=== PATIENT | female | born 1985 | race African-American/Black ===

== ENCOUNTER 2019-07-27 17:36 | Emergency (ER) | payer SELFPAY ==
[~2019-07-27] VITALS: Ht 170.2 cm; Wt 75.3 kg
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
[2019-07-27] MEDS ORDERED: TRAMADOL HCL 50 MG TABLET ONE (18:11)
--- NOTE | 2019-07-27 18:14 | NUR ---
tech at bedside for xray
[2019-07-27] MEDS ORDERED: TRAMADOL HCL 50 MG TABLET PO ONE (18:30)
[2019-07-27 19:26] VITALS: BP 117/81
--- NOTE | 2019-07-27 19:26 | NUR ---
Patient discharged to home in stable condition. Written and verbal after care instructions given. Patient verbalizes understanding of instruction.
== END 2019-07-27 19:27 | disposition home or self-care (01) ==
LOC: ER 17:39
DX: O9A.212 Injury, poisoning and certain other consequences of external causes complicating pregnancy, second trimester (principal); S82.832A Other fracture of upper and lower end of left fibula, initial encounter for closed fracture; S43.102A Unspecified dislocation of left acromioclavicular joint, initial encounter; S90.02XA Contusion of left ankle, initial encounter; Z3A.20 20 weeks gestation of pregnancy; Z88.0 Allergy status to penicillin; W22.8XXA Striking against or struck by other objects, initial encounter; Y93.89 Activity, other specified; Y92.89 Other specified places as the place of occurrence of the external cause; Y99.8 Other external cause status
CPT/HCPCS: 73030-TC; 73610-TC

== ENCOUNTER 2020-05-04 11:23 | Emergency (ER) | payer MEDICAID ==
[~2020-05-04] VITALS: Ht 170.2 cm; Wt 73.5 kg
[2020-05-04 12:20] VITALS: BP 124/94
[2020-05-04] MEDS ORDERED: KETOROLAC TROMETHAMINE INJ 30 MG/ML VIAL IM ONE (12:30)
[2020-05-04] MEDS ORDERED: KETOROLAC TROMETHAMINE 15 MG/ML VIAL ONE (13:10)
== END 2020-05-04 13:43 | disposition home or self-care (01) ==
LOC: ER 11:41
DX: S66.811A Strain of other specified muscles, fascia and tendons at wrist and hand level, right hand, initial encounter (principal); Z88.0 Allergy status to penicillin; X50.1XXA Overexertion from prolonged static or awkward postures, initial encounter; Y93.89 Activity, other specified; Y92.89 Other specified places as the place of occurrence of the external cause; Y99.8 Other external cause status
CPT/HCPCS: 29125; 73110; 96372; 99283; J1885

== ENCOUNTER 2020-12-06 18:18 | Emergency (ER) | payer MEDICAID ==
[~2020-12-06] VITALS: Ht 170.2 cm; Wt 81.2 kg
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
[2020-12-06] MEDS ORDERED: GUAIFENESIN LA 600 MG TABLET.SA PO ONE ×2 (19:30→20:26)
[2020-12-06] MEDS ORDERED: GUAI600T53 PO (20:28)
[2020-12-06] MEDS ORDERED: BENZ-13 PO (20:28)
--- NOTE | 2020-12-06 20:41 | NUR ---
Patient discharged to home in stable condition. Written and verbal after care instructions given. Patient verbalizes understanding of instruction. pT ambulatory with a steady gait
[2020-12-06 20:46] VITALS: BP 119/80
== END 2020-12-06 20:41 | disposition home or self-care (01) ==
LOC: ER 18:20
DX: J06.9 Acute upper respiratory infection, unspecified (principal); R05 Cough; Z20.822 Contact with and (suspected) exposure to COVID-19; Z88.0 Allergy status to penicillin
CPT/HCPCS: 71045; 87426; 99284; C9803

== ENCOUNTER 2021-06-27 09:05 | Emergency (ER) | payer MEDICAID ==
[~2021-06-27] VITALS: Ht 170.2 cm; Wt 88.0 kg
[~2021-06-27 09:05] MED LIST: BENZ-13 PO; GUAI600T53 PO
[2021-06-27 09:12] VITALS: BP 135/89
--- NOTE | 2021-06-27 09:12 | NUR ---
BIBS C/O GENERALIZED BODY ITCHING/RASH THAT STARTED AT 2AM. VITALS ARE WITHIN NORMAL LIMITS. BREATHING EVEN AND UNLABORED. PROVIDED WITH WARM BLANKET FOR COMFORT. AWAITING MD ROWLAND.
--- NOTE | 2021-06-27 09:31 | NUR ---
SEEN AND EXAMINED BY DR GONZALEZ
[2021-06-27] MEDS ORDERED: predniSONE 20 MG TABLET ONE (09:42)
[2021-06-27] MEDS ORDERED: diphenhydrAMINE HCL 25 MG CAPSULE ONE (09:43)
[2021-06-27] MEDS ORDERED: FAMOTIDINE (20 MG) 20 MG TABLET ONE (09:43)
[2021-06-27] MEDS ORDERED: predniSONE 50 MG TABLET PO ONE (10:00)
[2021-06-27] MEDS ORDERED: diphenhydrAMINE HCL 25 MG CAPSULE PO ONE (10:00)
[2021-06-27] MEDS ORDERED: FAMOTIDINE (20 MG) 20 MG TABLET PO ONE (10:00)
[2021-06-27 11:13] LABS: CREATININE 0.7 mg/dL (0.6-1.3); POTASSIUM 4.3 mmol/L (3.5-5.1)
[2021-06-27 11:18] LABS: ALBUMIN 3.7 g/dL (3.4-5.0); BILIRUBIN,DIRECT 0.1 mg/dL (0.0-0.2); BILIRUBIN,TOTAL 0.6 mg/dL (0.2-1.0); TOTAL PROTEIN, SERUM 7.6 g/dL (6.4-8.2)
[2021-06-27] MEDS ORDERED: PRED20TA PO (11:27)
[2021-06-27] MEDS ORDERED: DIPH25CA83 PO (11:27)
[2021-06-27 11:39] LABS: BASOPHILS % (AUTO) 0.4 % (0.0-2.0); EOSINOPHILS % (AUTO) 1.6 % (0.0-6.0); HEMATOCRIT 36 % (33-45); HEMOGLOBIN 12.3 g/dL (11.5-14.8); LYMPHOCYTES # (AUTO) 1.2 K/uL (0.8-4.8); LYMPHOCYTES % (AUTO) 15.4 % (20.0-44.0); MEAN CORPUSCULAR HGB CONC 35 g/dl (31.0-36.0); MEAN CORPUSCULAR VOLUME 94 fL (82-100); MONOCYTES # (AUTO) 0.4 K/uL (0.1-1.30); MONOCYTES % (AUTO) 5.6 % (2.0-12.0); NEUTROPHILS # (AUTO) 6.2 K/uL (1.8-8.9); PLATELET COUNT (AUTO) 381 K/uL (150-450); RED BLOOD CELL COUNT(AUTO) 3.76 MIL/uL (4.0-5.2)
--- NOTE | 2021-06-27 11:42 | NUR ---
Patient discharged to home in stable condition. Written and verbal after care instructions given. Patient verbalizes understanding of instruction.
== END 2021-06-27 11:46 | disposition home or self-care (01) ==
LOC: ER 09:11
DX: T78.40XA Allergy, unspecified, initial encounter (principal); Z88.0 Allergy status to penicillin; Z79.899 Other long term (current) drug therapy; X58.XXXA Exposure to other specified factors, initial encounter
CPT/HCPCS: 36415; 80048; 80076; 82247; 85025; 99284; J7512; Q0163

== ENCOUNTER 2022-03-03 16:58 | Emergency (ER) | payer MEDICAID ==
[~2022-03-03] VITALS: Ht 170.2 cm; Wt 84.8 kg
[~2022-03-03 16:58] MED LIST changes: +DIPH25CA83 PO; +PRED20TA PO
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
[2022-03-03] MEDS ORDERED: ONDANSETRON HCL/PF 4 MG/2 ML VIAL ONE (17:20)
[2022-03-03] MEDS ORDERED: HYDROMORPHONE 1 MG/1 ML DISP.SYRIN ONE (17:20)
--- NOTE | 2022-03-03 17:20 | NUR ---
SEEM by DR. EASTON
[2022-03-03] MEDS ORDERED: ONDANSETRON HCL/PF 4 MG/2 ML VIAL IVP ONE (17:30)
[2022-03-03] MEDS ORDERED: HYDROMORPHONE INJ 2 MG/ML DISP.SYRIN IV ONE ×2 (17:30→19:30)
--- NOTE | 2022-03-03 17:45 | NUR ---
xray done at bed side
--- NOTE | 2022-03-03 18:30 | NUR ---
VITAL SIGNS UPDATED.
[2022-03-03] MEDS ORDERED: DOCU-141 PO (19:08)
[2022-03-03] MEDS ORDERED: HYDR-4209 PO (19:08)
--- NOTE | 2022-03-03 19:28 | NUR ---
HAND OFF MARCELO ROTHMAN
--- NOTE | 2022-03-03 19:58 | NUR ---
KNEE IMMOBILIZER APPLIED TO LEFT KNEE
[2022-03-03 20:07] VITALS: BP 121/84
--- NOTE | 2022-03-03 20:07 | NUR ---
Patient discharged to home in stable condition with father. RX Written and verbal after care instructions given. Patient verbalizes understanding of instruction. Pt d/c via W/C
[2022-03-03] MEDS ORDERED: OXYC-133 PO (21:28)
--- NOTE | 2022-03-03 21:35 | NUR ---
callie's family came back to the ER requesting prescribed medications to be sent to a 24-hour pharmacy.
== END 2022-03-03 21:36 | disposition home or self-care (01) ==
LOC: ER 17:02
DX: S82.092A Other fracture of left patella, initial encounter for closed fracture (principal); Z79.899 Other long term (current) drug therapy; W17.89XA Other fall from one level to another, initial encounter; Y93.89 Activity, other specified; Y92.89 Other specified places as the place of occurrence of the external cause; Y99.8 Other external cause status
CPT/HCPCS: 99284; 96374; 29505; 96375; 96376; 73564; J2405; J1170

== ENCOUNTER 2022-07-26 19:57 | Emergency (ER) | payer MEDICAID ==
[~2022-07-26] VITALS: Ht 170.2 cm; Wt 83.0 kg
[~2022-07-26 19:57] MED LIST changes: +DOCU-141 PO; +HYDR-4209 PO; +OXYC-133 PO
--- NOTE | 2022-07-26 22:45 | NUR ---
BIBFAMILY. DIZZYNESS X 2 DAYS. ROOM SPINNING. PT A/OX4. TOLERATING R/A WELL WITH NO RESP DISTRESS. SAFETY MEASURES IN PLACE.
[2022-07-26] MEDS ORDERED: MECLIZINE HCL 12.5 MG TABLET PO ONE (23:00)
[2022-07-26] MEDS ORDERED: IV NS 0.9% 1,000 ML BAG IV ONE (23:00)
[2022-07-26] MEDS ORDERED: ONDANSETRON HCL/PF 4 MG/2 ML VIAL IVP ONE (23:00)
[2022-07-26] MEDS ORDERED: ONDANSETRON HCL/PF 4 MG/2 ML VIAL ONE (23:01)
[2022-07-26] MEDS ORDERED: MECLIZINE HCL 25 MG TABLET ONE (23:02)
--- NOTE | 2022-07-26 23:18 | NUR ---
RFA #20G S/L BLOOD COLLECTED AND SENT TO LAB
--- NOTE | 2022-07-26 23:27 | NUR ---
URINE COLLECTED AND SENT TO LAB
--- NOTE | 2022-07-26 23:51 | NUR ---
PT SIGNED WAIVER FORM; CLINICAL BIOCHEMIST AWARE
[2022-07-26 23:52] LABS: BASOPHILS # (AUTO) 0.1 K/uL (0.0-0.2); BASOPHILS % (AUTO) 0.5 % (0.0-2.0); EOSINOPHILS % (AUTO) 1.6 % (0.0-6.0); HEMATOCRIT 38 % (33-45); HEMOGLOBIN 12.5 g/dL (11.5-14.8); LYMPHOCYTES # (AUTO) 1.8 K/uL (0.8-4.8); LYMPHOCYTES % (AUTO) 15.3 % (20.0-44.0); MEAN CORPUSCULAR HGB CONC 33 g/dl (31.0-36.0); MEAN CORPUSCULAR VOLUME 95 fL (82-100); MONOCYTES # (AUTO) 0.6 K/uL (0.1-1.30); MONOCYTES % (AUTO) 5.1 % (2.0-12.0); NEUTROPHILS # (AUTO) 9.2 K/uL (1.8-8.9); NEUTROPHILS % (AUTO) 77.5 % (43.0-81.0); PLATELET COUNT (AUTO) 389 K/uL (150-450); WHITE BLOOD COUNT (AUTO) 11.8 K/uL (4.3-11.0)
[2022-07-27 00:06] LABS: ALANINE AMINOTRANSFERASE 32 U/L (12-78); ALBUMIN 3.9 g/dL (3.4-5.0); ALKALINE PHOSPHATASE 71 U/L (46-116); ASPARTATE AMINOTRANSFERASE 26 U/L (15-37); BILIRUBIN,DIRECT 0.2 mg/dL (0.0-0.2); BILIRUBIN,TOTAL 0.5 mg/dL (0.2-1.0); CALCIUM, SERUM 8.8 mg/dL (8.5-10.1); CARBON DIOXIDE 24 mmol/L (21-32); CHLORIDE 102 mmol/L (98-107); GLUCOSE 87 mg/dL (74-106); POTASSIUM 3.8 mmol/L (3.5-5.1); SODIUM SERUM 137 mmol/L (136-145); TOTAL PROTEIN, SERUM 8.3 g/dL (6.4-8.2); UREA NITROGEN, BLOOD 11 mg/dL (7-18)
--- NOTE | 2022-07-27 00:13 | NUR ---
PT TAKEN TO CT VIA JOYCE
[2022-07-27 00:28] LABS: BILIRUBIN,URINE NEGATIVE (NEGATIVE); COLOR,URINE YELLOW (YELLOW); LEUKOCYTE ESTERASE ,URINE 2+ (NEGATIVE); NITRITE, URINE NEGATIVE (NEGATIVE); PH,URINE 5.5 (5.0-8.0); PROTEIN,URINE NEGATIVE (NEGATIVE); UGLUCOSE NEGATIVE (NEGATIVE); UROBILINOGEN,URINE 0.2 EU/dL (0.2)
[2022-07-27 00:55] LABS: BACTERIA,URINE Moderate /HPF (None Seen); SQUAMOUS EPITHELIAL CELL,UR Many /HPF (None Seen)
--- NOTE | 2022-07-27 01:25 | NUR ---
ASSESSMENT NURSE PRACTITIONER AT PT'S BEDSIDE
[2022-07-27] MEDS ORDERED: NITROFURANTOIN/MONOHYDRATE MACROCRYSTALS 100 MG CAPSULE ONE (01:26)
[2022-07-27] MEDS ORDERED: NITROFURANTOIN/MONOHYDRATE MACROCRYSTALS 100 MG CAPSULE PO ONE (01:30)
--- NOTE | 2022-07-27 01:45 | NUR ---
Patient does not wish to proceed with medical care recommended by Ivania Colvin. Patient given information related to possible complications, up to and including , which could occur as a result of leaving the hospital at this time. Patient verbalizes understanding of risks involved due to leaving against medical advice. Patient has signed AMA form.
[2022-07-27 01:47] VITALS: BP 124/85
--- NOTE | 2022-07-27 01:47 | NUR ---
IV removed. Catheter intact and site benign. Pressure and 4x4 applied to site. No bleeding noted.
== END 2022-07-27 01:48 | disposition left against medical advice (07) ==
LOC: ER 19:58
DX: R42 Dizziness and giddiness (principal); N39.0 Urinary tract infection, site not specified; F17.200 Nicotine dependence, unspecified, uncomplicated; Z88.0 Allergy status to penicillin; Z79.899 Other long term (current) drug therapy
CPT/HCPCS: 99285; 96374; 70450; 71045; 96361; 93005; 85025; 80048; 87086; 80076; 84703; 81001; 36415 ×2; 84484 ×2; 85730; 82962; J8597; J2405; J7030

== ENCOUNTER 2023-05-16 18:07 | Emergency (ER) | payer MEDICAID ==
[~2023-05-16] VITALS: Ht 170.2 cm; Wt 80.7 kg
[~2023-05-16 18:07] MED LIST changes: +BACI30OI9 TP; +CLIN300C12 PO
[2023-05-16] MEDS ORDERED: ALBU18HF2 INH (22:06)
[2023-05-16] MEDS ORDERED: PRED20TA PO (22:06)
[2023-05-16] MEDS ORDERED: GUAI600T53 PO (22:06)
[2023-05-16] MEDS ORDERED: predniSONE 20 MG TABLET ONE (22:16)
[2023-05-16 22:23] VITALS: BP 114/73; TEMP 98.8; O2SAT 100
[2023-05-16] MEDS ORDERED: predniSONE 20 MG TABLET PO ONE (22:30)
== END 2023-05-16 22:23 | disposition home or self-care (01) ==
LOC: ER 18:07
DX: B34.9 Viral infection, unspecified (principal); R05.9 Cough, unspecified; J45.909 Unspecified asthma, uncomplicated; F17.200 Nicotine dependence, unspecified, uncomplicated; Z79.899 Other long term (current) drug therapy; Z20.822 Contact with and (suspected) exposure to COVID-19; Z88.0 Allergy status to penicillin
CPT/HCPCS: 99283; 87426; 87804 ×2; J7512

== ENCOUNTER 2023-11-30 02:04 | Emergency (ER) | payer MEDICAID ==
[~2023-11-30] VITALS: Ht 170.2 cm; Wt 70.3 kg
[~2023-11-30 02:04] MED LIST changes: +ALBU18HF2 INH
[2023-11-30] MEDS ORDERED: KETOROLAC TROMETHAMINE INJ 30 MG/ML VIAL ONE (04:41)
[2023-11-30] MEDS: KETOROLAC TROMETHAMINE INJ 60 MG/2 ML VIAL IM ONE (04:47)
[2023-11-30] MEDS ORDERED: NAPR-1009 PO ×2 (05:02→07:22)
[2023-11-30] MEDS ORDERED: CYCL10TA9 PO (05:02)
[2023-11-30] MEDS ORDERED: oxyCODONE/APAP (5/325 MG) 1 UDTAB TABLET ONE (06:27)
[2023-11-30] MEDS: oxyCODONE/APAP (5/325 MG) 1 UDTAB TABLET PO ONE (06:31)
[2023-11-30] MEDS ORDERED: CYCL5TAB PO (07:22)
[2023-11-30 07:26] VITALS: BP 125/89; TEMP 98.6; O2SAT 100
== END 2023-11-30 07:26 | disposition home or self-care (01) ==
LOC: ER 02:05
DX: S39.012A Strain of muscle, fascia and tendon of lower back, initial encounter (principal); M54.2 Cervicalgia; J45.909 Unspecified asthma, uncomplicated; F12.10 Cannabis abuse, uncomplicated; F17.200 Nicotine dependence, unspecified, uncomplicated; Z88.0 Allergy status to penicillin; V43.52XA Car driver injured in collision with other type car in traffic accident, initial encounter; Y93.89 Activity, other specified; Y92.488 Other paved roadways as the place of occurrence of the external cause; Y99.8 Other external cause status
CPT/HCPCS: 99285; 72125; 96372; 72131; J1885